=== PATIENT | male | born 1970 | race Two or more races ===

== ENCOUNTER 2019-03-30 13:09 | Outpatient (CLI) | payer OTHER | END 2019-03-30 13:15 | disposition home or self-care (01) | LOC: LAB 13:09 | DX: J11.1 Influenza due to unidentified influenza virus with other respiratory manifestations (principal); R05 Cough ==

== ENCOUNTER → 2019-03-31 07:53 | Outpatient (CLI) | payer OTHER | END | disposition home or self-care (01) | LOC: LAB 07:53 | DX: D69.49 Other primary thrombocytopenia (principal) ==